=== PATIENT | female | born 1970 | race Caucasian/White ===

== ENCOUNTER 2017-11-15 17:32 | Emergency (ER) | END 2017-11-15 19:26 | disposition home or self-care (01) ==

== ENCOUNTER 2018-03-30 13:05 | Emergency (ER) | payer OTHER ==
[~2018-03-30] VITALS: Wt 64.9 kg
[~2018-03-30 13:05] MED LIST: CYCL10TA7 PO; NAPR-985 PO; TRAM50TA2 PO
[2018-03-30 13:22] VITALS: Wt 64.9 kg
[2018-03-30] MEDS ORDERED: FAMOTIDINE 20 MG TAB PO STA (16:26)
[2018-03-30] MEDS ORDERED: ONDANSETRON 4 MG INJ IV STA (16:26)
[2018-03-30] MEDS ORDERED: KETOROLAC 15 MG INJ IV STA (16:26)
[2018-03-30] MEDS ORDERED: SOD CHLORIDE 0.9% 1,000 ML IV STA (16:26)
--- NOTE | 2018-03-30 16:35 | ERD ---
ER Documentation Chief Complaint Chief Complaint mid-AP, NVD since 1600 yesterday. no fevers. HPI 47-year-old female with no significant previous medical history presents to the ED for evaluation of abdominal pain. Yesterday afternoon patient reports acute onset of moderate, sharp, achy and burning, nonradiating epigastric pain with nausea and multiple episodes of nonbloody, nonbilious emesis and watery, nonbloody, nonmucoid diarrhea. No relieving or exacerbating factors. Patient attributes the symptoms to a sample of chicken with rice she had at [employer]. No ill contacts or recent travel. Denies dysuria, polyuria, hematuria or flank pain. No vaginal discharge or bleeding. No chest pain, palpitations, shortness of breath or cough. No skin rash. Denies headache, neck or back pain. Chills but no fevers. ROS All systems reviewed and are negative except as per history of present illness. Medications Home Meds Active Scripts Famotidine* (Pepcid*) 20 Mg Tablet, 20 MG PO BID for 7 Days, TAB Prov:KIMBERLY ABREU MD 03/30/18 Ondansetron Hcl* (Zofran*) 4 Mg Tablet, 4 MG PO Q6H for NAUSEA AND/OR VOMITING, #8 TAB Prov:KIMBERLY ABREU MD 03/30/18 Naproxen* (Naprosyn*) 500 Mg Tablet, 500 MG PO BID PRN for PAIN AND/OR INFLAMMATION, #30 TAB Prov:ANGELICA RAMOS PA-C 11/15/17 Cyclobenzaprine Hcl* (Cyclobenzaprine Hcl*) 10 Mg Tablet, 10 MG PO QHS, #7 TAB Prov:ANGELICA RAMOS PA-C 11/15/17 Tramadol HCl (Tramadol HCl) 50 Mg Tablet, 50 MG PO Q6 PRN for PAIN, #20 TAB Prov:ANGELICA RAMOS PA-C 11/15/17 Allergies Allergies: Coded Allergies: No Known Allergy (Unverified , 11/15/17) PMhx/Soc Reviewed History of Surgery: No Hx Neurological Disorder: No Hx Respiratory Disorders: No Hx Cardiac Disorders: No Hx Psychiatric Problems: No Hx Miscellaneous Medical Probl: Yes (Back pain) Hx Alcohol Use: No Hx Substance Use: No Hx Tobacco Use: No FmHx No coronary artery disease or cancer Physical Exam Vitals Vital Signs Date Temp Pulse Resp B/P (MAP) Pulse Ox O2 O2 Flow FiO2 Time Delivery Rate 03/30/18 83 18 98/66 (77) 99 Room Air 17:48 03/30/18 98.8 104 22 111/60 99 13:22 (77) Physical Exam Const: Alert,, Moderate distress due to pain Head: Atraumatic Eyes: Normal Conjunctiva. Anicteric ENT: Normal External Ears, Nose and Mouth. Neck: Full range of motion. No meningismus. Resp: Breath sounds are equal and clear to auscultation bilaterally. No rales. rhonchi or wheezes. Cardio: Regular rate and rhythm, no murmurs Abd: Soft, epigastric and right upper quadrant tenderness. Equivocal Saenz sign. No right or left lower quadrant tenderness. No rebound or guarding. Skin: No petechiae or rashes Back: No midline or flank tenderness Ext: No cyanosis, or edema Neur: Awake and alert. No focal deficit. Psych: Anxious but not depressed. Result Diagram: 03/30/18 1637 03/30/18 1637 Results 24 hrs Laboratory Tests Test 03/30/18 16:37 White Blood Count 6.1 10^3/ul Red Blood Count 4.90 10^6/ul Hemoglobin 15.2 g/dl Hematocrit 45.5 % Mean Corpuscular Volume 92.9 fl Mean Corpuscular Hemoglobin 31.0 pg Mean Corpuscular Hemoglobin Concent 33.4 g/dl Red Cell Distribution Width 12.5 % Platelet Count 275 10^3/UL Mean Platelet Volume 9.2 fl Immature Granulocytes % 0.300 % Neutrophils % 73.5 % Lymphocytes % 17.3 % Monocytes % 8.1 % Eosinophils % 0.3 % Basophils % 0.5 % Nucleated Red Blood Cells % 0.0 /100WBC Immature Granulocytes # 0.020 10^3/ul Neutrophils # 4.5 10^3/ul Lymphocytes # 1.1 10^3/ul Monocytes # 0.5 10^3/ul Eosinophils # 0.0 10^3/ul Basophils # 0.0 10^3/ul Nucleated Red Blood Cells # 0.0 10^3/ul Urine Color YELLOW Urine Clarity SLIGHTLY CLOUDY Urine pH 5.0 Urine Specific Soso 1.032 Urine Ketones NEGATIVE mg/dL Urine Nitrite NEGATIVE mg/dL Urine Bilirubin NEGATIVE mg/dL Urine Urobilinogen NEGATIVE mg/dL Urine Leukocyte Esterase NEGATIVE Tamika/ul Urine Microscopic RBC 3 /HPF Urine Microscopic WBC 2 /HPF Urine Mucus MANY /HPF Urine Hemoglobin NEGATIVE mg/dL Urine Glucose NEGATIVE mg/dL Urine Total Protein NEGATIVE mg/dl Sodium Level 143 mmol/L Potassium Level 3.8 mmol/L Chloride Level 101 mmol/L Carbon Dioxide Level 24 mmol/L Anion Gap 18 Blood Urea Nitrogen 19 mg/dl Creatinine 0.68 mg/dl Est Glomerular Filtrat Rate mL/min > 60 mL/min Glucose Level 102 mg/dl Calcium Level 9.6 mg/dl Total Bilirubin 0.6 mg/dl Direct Bilirubin 0.00 mg/dl Indirect Bilirubin 0.6 mg/dl Aspartate Amino Transf (AST/SGOT) 43 IU/L Alanine Aminotransferase (ALT/SGPT) 43 IU/L Alkaline Phosphatase 119 IU/L Total Protein 8.9 g/dl Albumin 4.8 g/dl Globulin 4.10 g/dl Albumin/Globulin Ratio 1.17 Lipase 72 U/L Current Medications Medications Dose Sig/Bib Start Time Status Last (Trade) Ordered Route PRN Stop Time Admin Dose Reason Admin Sodium 1,000 ml @ Q1H STAT 03/30/18 DC 03/30/18 Chloride 1,000 mls/hr IV 16:26 17:33 03/30/18 17:25 Ondansetron 4 mg ONCE STAT 03/30/18 DC 03/30/18 HCl (Zofran IV 16:26 17:33 Inj) 03/30/18 16:28 Famotidine 20 mg ONCE STAT 03/30/18 DC 03/30/18 (Pepcid) PO 16:26 17:34 03/30/18 16:28 Ketorolac 15 mg ONCE STAT 03/30/18 DC 03/30/18 Tromethamine IV 16:26 17:33 (Toradol) 03/30/18 16:28 Procedures/MDM DOCUMENTS REVIEWED: ED nurse, prior ED visit for back pain. IMAGING: PROCEDURE: US Abdomen (right upper quadrant). CLINICAL INDICATION: Abdominal pain TECHNIQUE: Multiple real-time longitudinal and transverse images of the right upper quadrant of the abdomen were acquired utilizing a curved array transducer. Images were reviewed on a high-resolution PACS workstation. COMPARISON: None FINDINGS: The liver is normal in size and echogenicity without focal mass or intrahepatic biliary dilatation. The gallbladder is normal. There is no pericholecystic fluid or gallbladder wall thickening or gallstones. No intra or extrahepatic biliary dilatation is seen. The common bile duct measures 4.2 mm in maximal dimension. The visualized portions of the pancreas are unremarkable with obscuration of the tail of the pancreas. No free fluid is identified. The right kidney measures 10.0 cm in length. There is normal echogenicity within the right kidney. There is no perinephric fluid collection. No hydronephrosis, mass, or calculus is seen. IMPRESSION: Unremarkable right upper quadrant ultrasound. RPTAT: JJ .German Logan MD, MD Date Time Electronically viewed and signed by .German Logan MD, on 03/30/2018 16:36 .A/ ED COURSE: IV saline lock. Normal saline 1 L. Ketorolac 15 mg IV, Pepcid 20 mg IV and Zofran 4 mg IV. REEXAMINATION/REEVALUATION: Time: 17:35. Doing well. Abdomen soft nontender. Tolerating p.o.'s. No nausea or vomiting. MEDICAL DECISION MAKIN-year-old female with no significant previous medical history presents to the ED for evaluation of abdominal pain. CBC to evaluate for leukocytosis, anemia and thrombocytopenia is unremarkable. Chemistry negative for electrolyte abnormalities or renal insufficiency. No hyperglycemia. LFTs are unremarkable. Lipase is normal. Right upper quadrant ultrasound to evaluate for cholelithiasis, cholecystitis and choledocholithiasis is unremarkable. Abdominal exam is benign without significant tenderness, rebound, guarding, signs of appendicitis, diverticulitis, peritonitis or indication for CT scan. [employer] pathology including but not limited to ovarian cyst, torsion PID is considered. Patient presents with acute epigastric abdominal pain with nausea, vomiting and diarrhea likely secondary to gastroenteritis. Multiple etiologies including viral, food borne illness and bacterial enteritis are considered. Possible gastritis versus peptic ulcer disease without GI bleeding. Symptoms resolved with intravenous hydration, antiemetics, H2 blockers and analgesics. No indication for antibiotics. Stable for discharge with precautionary instructions and outpatient follow-up as counseled. Counseled patient regarding diagnostic workup, diagnosis and need for followup. Understands to return to ED if symptoms recur, worsen or any other concerns. Departure Diagnosis: Primary Impression: Abdominal pain, acute, epigastric Additional Impression: Nausea vomiting and diarrhea Condition: Stable (Improved) KIMBERLY ABREU MD Mar 30, 2018 16:35
[2018-03-30 17:48] VITALS: BP 98/66; PULSE 83; RESP 18
[2018-03-30] MEDS ORDERED: ONDA4TAB8 PO (17:49)
[2018-03-30] MEDS ORDERED: FAMO-96 PO (17:49)
== END 2018-03-30 18:07 | disposition home or self-care (01) ==
LOC: E/R 13:05
DX: R10.13 Epigastric pain (principal); R11.2 Nausea with vomiting, unspecified; R19.7 Diarrhea, unspecified
CPT/HCPCS: 36415; 76705; 80053; 81001; 83690; 85025; 96374; 96375; J1885; J2405; J7030; Z7502; Z7610; 81003